=== PATIENT | female | born 1950 | race African-American/Black ===

== ENCOUNTER → 2016-09-18 | Outpatient (CLI) | payer MEDICARE ==
[~2016-09-18] MED LIST: ASPI-110 PO; BD I XX; CYCL5TAB PO; GABA300C5 PO; INSU100V SQ; LATA.005%O EACH EYE; LATA0.002 EACH EYE; METF1000 PO; PNEU13P IM; VASO10TA8 PO; ZOCO40TA PO; ZOSTINJ SQ
[2016-09-18 11:45] LABS: MEAN CELL VOLUME 89.4 FL (80.0-100.0); MEAN CORPUSCULAR HEMOGLOBIN 29.6 PG (27.0-34.0); MEAN CORPUSCULAR HGB CONC 33.1 % (32.0-36.0); PLATELET COUNT 222 TH/MM3 (150-450); RED BLOOD COUNT 4.14 MIL/MM3 (4.00-5.30); RED CELL DISTRIBUTION WIDTH 14.3 % (11.6-17.2); REVIEW FLAG FINAL; WHITE BLOOD COUNT 5.3 TH/MM3 (4.0-11.0)
[2016-09-18 12:01] LABS: BICARBONATE 26.9 MEQ/L (21.0-32.0); POTASSIUM 4.2 MEQ/L (3.5-5.1)
[2016-09-18 16:20] LABS: HEMOGLOBIN A1a 1.5 %; HEMOGLOBIN A1b 2.9 %; HEMOGLOBIN Ao 79.1 %; HEMOGLOBIN LA1C 2.4 %; HEMOGLOBIN P3 4.4 %
== END ==
LOC: CLAB 11:05
PROVIDERS: ATTEND Internal Medicine Nephrology
DX: N28.1 Cyst of kidney, acquired (principal); N18.3 Chronic kidney disease, stage 3 (moderate); E11.22 Type 2 diabetes mellitus with diabetic chronic kidney disease; E11.65 Type 2 diabetes mellitus with hyperglycemia
CPT/HCPCS: 36415; 80069; 83036; 83970; 85027

== ENCOUNTER → 2016-10-09 | Outpatient (CLI) | payer MEDICARE ==
[2016-10-09 09:23] LABS: BACTERIA, URINE RARE /hpf; BLOOD, URINE NEG (NEG); GLUCOSE,URINE 1000 mg/dL (NEG); KETONE, URINE NEG (NEG); MUCUS URINE FEW /lpf (OCC); NITRITE,URINE NEG (NEG); PH, URINE 5.5 (5.0-8.5); SQUAMOUS EPITHELIAL CELL URINE 3 /hpf (0-5); URINE COLOR YELLOW (YELLW/STRAW)
== END ==
LOC: CLAB 09:00
PROVIDERS: ATTEND Physician Assistant
DX: N39.0 Urinary tract infection, site not specified (principal)
CPT/HCPCS: 81001; 87086

== ENCOUNTER → 2016-12-06 | Outpatient (CLI) | payer MEDICARE ==
[~2016-12-06] MED LIST changes: -PNEU13P IM
[2016-12-06 11:22] LABS: HEMATOCRIT 38.9 % (35.0-46.0); MEAN CELL VOLUME 89.7 FL (80.0-100.0); MEAN CORPUSCULAR HEMOGLOBIN 28.4 PG (27.0-34.0); MEAN CORPUSCULAR HGB CONC 31.6 % (32.0-36.0); PLATELET COUNT 212 TH/MM3 (150-450); RED BLOOD COUNT 4.33 MIL/MM3 (4.00-5.30); RED CELL DISTRIBUTION WIDTH 14.3 % (11.6-17.2); REVIEW FLAG FINAL; WHITE BLOOD COUNT 6.1 TH/MM3 (4.0-11.0)
[2016-12-06 11:48] LABS: ALKALINE PHOSPHATASE 80 U/L (45-117); ALT (GPT) 33 U/L (10-53); ANION GAP 8 MEQ/L (5-15); AST (GOT) 21 U/L (15-37); BICARBONATE 27.2 MEQ/L (21.0-32.0); BLOOD UREA NITROGEN 17 MG/DL (7-18); CHLORIDE 107 MEQ/L (98-107); GLOMERULAR FILTRATION RATE 44 ML/MIN (>89); GLUCOSE,FASTING 160 MG/DL (74-99); HDL CHOLESTEROL 55.3 MG/DL (40.0-60.0); LDL CHOLESTEROL 29 MG/DL (0-99); POTASSIUM 4.1 MEQ/L (3.5-5.1); SODIUM (NA) 142 MEQ/L (136-145); TOTAL BILIRUBIN ADULT 0.2 MG/DL (0.2-1.0)
[2016-12-06 11:55] LABS: HEMOGLOBIN A1a 1.6 %; HEMOGLOBIN A1b 2.9 %; HEMOGLOBIN Ao 78.8 %; HEMOGLOBIN LA1C 2.6 %; HEMOGLOBIN P3 4.3 %
== END ==
LOC: CLAB 10:55
PROVIDERS: ATTEND Family Medicine
DX: I10 Essential (primary) hypertension (principal); E11.65 Type 2 diabetes mellitus with hyperglycemia
CPT/HCPCS: 36415; 80053; 80061; 83036; 85027

== ENCOUNTER → 2016-12-23 | Outpatient (CLI) | payer MEDICARE ==
[2016-12-23 14:25] LABS: ANION GAP 5 MEQ/L (5-15); BICARBONATE 28.9 MEQ/L (21.0-32.0); BLOOD UREA NITROGEN 13 MG/DL (7-18); CHLORIDE 105 MEQ/L (98-107); GLOMERULAR FILTRATION RATE 50 ML/MIN (>89); GLUCOSE,FASTING 165 MG/DL (74-99); SODIUM (NA) 139 MEQ/L (136-145)
[2016-12-23 16:39] LABS: HEMOGLOBIN A1a 1.4 %; HEMOGLOBIN Ao 78.5 %; HEMOGLOBIN LA1C 2.5 %; HEMOGLOBIN P3 4.5 %
== END ==
LOC: CLAB 13:37
DX: E11.65 Type 2 diabetes mellitus with hyperglycemia (principal)
CPT/HCPCS: 36415; 80048; 83036

== ENCOUNTER → 2017-03-07 | Outpatient (CLI) | payer MEDICARE ==
[~2017-03-07] MED LIST changes: -BD I XX; +SERT-132 PO; +SERT25TA83 PO; +TRAZ50TA12 PO
[2017-03-07 11:57] LABS: MICRO ALBUMIN RANDOM URINE RAW 8.3 MG/L (0.0-30.0)
== END ==
LOC: CLAB 11:22
PROVIDERS: ATTEND Family Medicine
DX: E11.65 Type 2 diabetes mellitus with hyperglycemia (principal)
CPT/HCPCS: 82043

== ENCOUNTER → 2017-03-18 | Outpatient (CLI) | payer MEDICARE ==
[2017-03-18 10:43] LABS: HEMATOCRIT 35.6 % (35.0-46.0); MEAN CELL VOLUME 90.3 FL (80.0-100.0); MEAN CORPUSCULAR HEMOGLOBIN 29.3 PG (27.0-34.0); MEAN CORPUSCULAR HGB CONC 32.4 % (32.0-36.0); PLATELET COUNT 191 TH/MM3 (150-450); RED BLOOD COUNT 3.94 MIL/MM3 (4.00-5.30); RED CELL DISTRIBUTION WIDTH 15.2 % (11.6-17.2); REVIEW FLAG FINAL; WHITE BLOOD COUNT 5.4 TH/MM3 (4.0-11.0)
[2017-03-18 11:09] LABS: BICARBONATE 27.9 MEQ/L (21.0-32.0); POTASSIUM 4.8 MEQ/L (3.5-5.1)
[2017-03-18 11:13] LABS: BACTERIA, URINE OCC /hpf; BLOOD, URINE NEG (NEG); GLUCOSE,URINE 300 mg/dL (NEG); KETONE, URINE NEG (NEG); MUCUS URINE FEW /lpf (OCC); NITRITE,URINE NEG (NEG); PH, URINE 5.5 (5.0-8.5); SQUAMOUS EPITHELIAL CELL URINE 3 /hpf (0-5); URINE COLOR YELLOW (YELLW/STRAW)
== END ==
LOC: CLAB 10:09
PROVIDERS: ATTEND Internal Medicine Nephrology
DX: N25.81 Secondary hyperparathyroidism of renal origin (principal); N18.3 Chronic kidney disease, stage 3 (moderate)
CPT/HCPCS: 36415; 80069; 81001; 82570; 83970; 84156; 85027

== ENCOUNTER → 2017-04-16 | Outpatient (CLI) | payer MEDICARE ==
[2017-04-16 11:41] LABS: HEMATOCRIT 38.2 % (35.0-46.0); MEAN CORPUSCULAR HEMOGLOBIN 29.5 PG (27.0-34.0); MEAN CORPUSCULAR HGB CONC 32.4 % (32.0-36.0); PLATELET COUNT 212 TH/MM3 (150-450); RED CELL DISTRIBUTION WIDTH 14.4 % (11.6-17.2); REVIEW FLAG FINAL; WHITE BLOOD COUNT 5.2 TH/MM3 (4.0-11.0)
[2017-04-16 11:44] LABS: BACTERIA, URINE FEW /hpf; BLOOD, URINE NEG (NEG); GLUCOSE,URINE 300 mg/dL (NEG); KETONE, URINE NEG (NEG); NITRITE,URINE NEG (NEG); PH, URINE 5.5 (5.0-8.5); SQUAMOUS EPITHELIAL CELL URINE 2 /hpf (0-5); URINE COLOR YELLOW (YELLW/STRAW)
[2017-04-16 11:45] LABS: COMMENT (UR) CULT NOT INDICATED; CULTURE IF INDICATED CULT NOT INDICATED
[2017-04-16 12:01] LABS: BICARBONATE 30.8 MEQ/L (21.0-32.0); POTASSIUM 4.4 MEQ/L (3.5-5.1)
[2017-04-16 17:09] LABS: HEMOGLOBIN A1a 1.4 %; HEMOGLOBIN A1b 2.9 %; HEMOGLOBIN Ao 78.5 %; HEMOGLOBIN LA1C 2.7 %; HEMOGLOBIN P3 4.6 %
== END ==
LOC: CLAB 11:01
DX: E11.22 Type 2 diabetes mellitus with diabetic chronic kidney disease (principal); E11.65 Type 2 diabetes mellitus with hyperglycemia; N18.3 Chronic kidney disease, stage 3 (moderate); N25.81 Secondary hyperparathyroidism of renal origin
CPT/HCPCS: 36415; 80069; 81001; 82570; 83036; 83970; 84156; 85027

== ENCOUNTER → 2017-09-08 | Outpatient (CLI) | payer MEDICARE ==
[~2017-09-08] MED LIST changes: -ASPI-110 PO; +ASPI1TAB57 PO; -SERT25TA83 PO; -TRAZ50TA12 PO
[2017-09-08 14:57] LABS: ALBUMIN 3.9 GM/DL (3.4-5.0); ALT (GPT) 21 U/L (10-53); AST (GOT) 20 U/L (15-37); BICARBONATE 28.8 MEQ/L (21.0-32.0); BLOOD UREA NITROGEN 14 MG/DL (7-18); CALCIUM 8.9 MG/DL (8.5-10.1); CHLORIDE 106 MEQ/L (98-107); CHOLESTEROL 130 MG/DL (120-200); CREATININE 1.29 MG/DL (0.50-1.00); GLOMERULAR FILTRATION RATE 50 ML/MIN (>89); GLUCOSE,FASTING 85 MG/DL (74-99); SODIUM (NA) 140 MEQ/L (136-145)
[2017-09-08 15:01] LABS: ALKALINE PHOSPHATASE 65 U/L (45-117); CHOLESTEROL/ HDL RATIO 2.04 RATIO; HDL CHOLESTEROL 63.5 MG/DL (40.0-60.0); LDL CHOLESTEROL 40 MG/DL (0-99); TOTAL BILIRUBIN ADULT 0.2 MG/DL (0.2-1.0); TOTAL PROTEIN 7.4 GM/DL (6.4-8.2); TRIGLYCERIDES 133 MG/DL (42-150)
[2017-09-08 17:00] LABS: HEMOGLOBIN A1C 7.7 % (4.3-6.0)
== END ==
LOC: CLAB 14:15
PROVIDERS: ATTEND Family Medicine
DX: E11.9 Type 2 diabetes mellitus without complications (principal)
CPT/HCPCS: 36415; 80053; 80061; 83036

== ENCOUNTER → 2017-09-29 | Outpatient (CLI) | payer MEDICARE ==
[2017-09-29 16:35] LABS: HEMATOCRIT 37.3 % (35.0-46.0); HEMOGLOBIN 12.1 GM/DL (11.6-15.3); MEAN CELL VOLUME 91.5 FL (80.0-100.0); MEAN CORPUSCULAR HEMOGLOBIN 29.7 PG (27.0-34.0); MEAN CORPUSCULAR HGB CONC 32.5 % (32.0-36.0); PLATELET COUNT 207 TH/MM3 (150-450); RED BLOOD COUNT 4.08 MIL/MM3 (4.00-5.30); RED CELL DISTRIBUTION WIDTH 15.5 % (11.6-17.2); WHITE BLOOD COUNT 7.1 TH/MM3 (4.0-11.0)
== END ==
LOC: CLAB 15:56
PROVIDERS: ATTEND Internal Medicine Nephrology
DX: E11.22 Type 2 diabetes mellitus with diabetic chronic kidney disease (principal); N18.3 Chronic kidney disease, stage 3 (moderate); N25.81 Secondary hyperparathyroidism of renal origin
CPT/HCPCS: 36415; 83970; 85027

== ENCOUNTER → 2017-10-02 | Outpatient (CLI) | payer MEDICARE ==
[2017-10-02 16:28] LABS: PHOSPHORUS 2.8 MG/DL (2.5-4.9)
[2017-10-02 16:31] LABS: ALBUMIN 3.7 GM/DL (3.4-5.0); BICARBONATE 25.7 MEQ/L (21.0-32.0); CALCIUM 8.6 MG/DL (8.5-10.1); CREATININE 1.31 MG/DL (0.50-1.00)
== END ==
LOC: CLAB 15:53
PROVIDERS: ATTEND Physician Assistant
DX: N18.3 Chronic kidney disease, stage 3 (moderate) (principal)
CPT/HCPCS: 36415; 80069

== ENCOUNTER 2017-10-16 12:50 | Emergency (ER) | payer MEDICARE ==
[~2017-10-16] VITALS: Ht 160 cm; Wt 75.0 kg
[2017-10-16 12:56] VITALS: BP 139/67; PULSE 74; RESP 18; TEMP 97.8; O2SAT 98
[2017-10-16] MEDS ORDERED: METO1TAB42 PO (13:16)
--- NOTE | 2017-10-16 13:51 | PD ---
HPI Chief Complaint: Fall Time Seen by Provider: 13:06 Travel History International Travel<30 days: No Contact w/Intl Traveler<30days: No Traveled to known affect area: No History of Present Illness HPI 67-year-old female presents emergency department for evaluation of right rib, and right elbow pain after a trip and fall that occurred 4 days ago. 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 Says her pain is located on the tip of her elbow and is mildly TTP. She otherwise has full range of motion of her elbow. Her right ribs are TTP and has constant, mild, nonradiating pain. She denies chest pain, shortness of breath, back pain. She denies any head trauma, headache, dizziness, neck pain, back pain. Patient does not take any blood thinners. Patient takes baby aspirin daily. She has a history of hypertension, diabetes mellitus with peripheral neuropathy, hyperlipidemia. PFSH Past Medical History Anemia: Yes Arthritis: Yes Heart Rhythm Problems: No Cardiac Catheterization: No Cardiovascular Problems: Yes High Cholesterol: Yes Congestive Heart Failure: Yes Diabetes: Yes Patient Takes Glucophage: Yes Diminished Hearing: No Endocrine: Yes Genitourinary: No Hypertension: Yes Immune Disorder: No Musculoskeletal: Yes Neurologic: Yes Reproductive: No Myocardial Infarction: No Seizures: Yes Tetanus Vaccination: > 5 Years Influenza Vaccination: No ?: Not Menopausal: Yes Past Surgical History Surgical History: No Previous Surgery AICD: No Arteriovenous Shunt: No Coronary Artery Bypass Graft: No Insulin Pump: No Joint Replacement: No Pacemaker: No Family History Family Hypercholesterolemia: Yes Social History Alcohol Use: No Tobacco Use: No Substance Use: No Allergies-Medications (Allergen,Severity, Reaction): Coded Allergies: No Known Allergies (Verified Adverse Reaction, Unknown, 10/16/17) Reported Meds & Prescriptions Reported Meds & Active Scripts Active Latanoprost Opth Drops (Latanoprost) 0.005% Drops 1 Drop EACH EYE HS Refrigerate until opened. Gabapentin 300 Mg Cap 300 Mg PO TID Metformin (Metformin HCl) 1,000 Mg Tab 1,000 Mg PO BIDPC With meals Zocor (Simvastatin) 40 Mg Tab 40 Mg PO DAILY Reported Metoprolol Succinate ER 24 HR (Metoprolol Succinate) 25 Mg Tab 10 Mg PO DAILY Humalog Mix 75-25 Inj (Insulin Lispro Protam/Lispro Human) 1,000 Unit/10 Ml Susp 50 Units SQ DAILY Aspirin 81 (Aspirin) 81 Mg Tabdr 81 Mg PO DAILY Xalatan Opth Drops (Latanoprost) 0.005% Drops 1 Drop EACH EYE HS Review of Systems Except as stated in HPI: all other systems reviewed are Neg Physical Exam Narrative GENERAL: Well-nourished, well-developed patient. SKIN: Focused skin assessment warm/dry. HEAD: Normocephalic. Atraumatic EYES: No scleral icterus. No injection or drainage. PERRLA, EOMI NECK: Supple, trachea midline. No JVD or lymphadenopathy. No midline tenderness CARDIOVASCULAR: Regular rate and rhythm without murmurs, gallops, or rubs. RESPIRATORY: Breath sounds equal bilaterally. No accessory muscle use. GASTROINTESTINAL: Abdomen soft, non-tender, nondistended. MUSCULOSKELETAL: No cyanosis, or edema. No CVA tenderness No tenderness palpation of the right shoulder, elbow joints, arm, fingers. She is neurovascularly intact. Right elbow-mildly tender to palpation of the distal olecranon process without deformities, abrasions or obvious hematomas. Full range of motion of elbow to include flexion, extension, rotation of hand. Grade 5/5 strength upper and lower extremities. Chest wall-mildly tender to palpation of the right lower ribs, no obvious deformities, abrasions present. BACK: Nontender without obvious deformity. No CVA tenderness. Data Data Last Documented VS Vital Signs Date Time Temp Pulse Resp B/P (MAP) Pulse Ox O2 Delivery O2 Flow Rate FiO2 10/16/17 13:09 98 Room Air 10/16/17 12:56 97.8 74 18 139/67 (91) Orders Orders Chest, Pa & Lat (10/16/17 ) Ed Discharge Order (10/16/17 14:33) MDM Medical Decision Making Medical Screen Exam Complete: Yes Emergency Medical Condition: Yes Differential Diagnosis Right rib contusion, fracture, hematoma Right elbow fracture, contusion, hematoma Narrative Course 67-year-old female presents emergency department for evaluation of right rib, and right elbow pain after a trip and fall that occurred 4 days ago. 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 Says her pain is located on the tip of her elbow and is only TTP. She has full range of motion of her elbow. Her right ribs are TTP and has constant, mild, nonradiating pain. She denies chest pain, shortness of breath, back pain. She denies any head trauma, headache, dizziness, neck pain, back pain. Patient does not take any blood thinners. Patient takes baby aspirin daily. She has a history of hypertension , diabetes mellitus with peripheral neuropathy, hyperlipidemia. Vital signs are stable. Physical exam findings- right elbow without any obvious injury. Mildly tender to palpation of the distal olecranon process however she has full range of motion, neurovascularly intact. Tender palpation of the right axillary ribs without deformities, crepitus. I did offer an x-ray to the elbow however, did not think this is necessary. Patient deferred. Chest x-ray ordered to rule out rib fracture. Negative for fracture or pneumothorax. Patient will be advised to continue taking normal, deep breaths to reduce complications. Advised to follow-up with a primary care physician. Return to the emergency department worsening persistent symptoms. Diagnosis Primary Impression: Contusion of rib on right side Qualified Codes: S20.211A - Contusion of right front wall of thorax, initial encounter Additional Impression: Elbow contusion Qualified Codes: S50.01XA - Contusion of right elbow, initial encounter Referrals: Primary Care Physician Patient Instructions: General Instructions, Rib Contusion (ED) Additional Instructions: Follow-up with primary care physician within 1 week. Continue to take deep breaths to avoid complications from your contusion. If your symptoms persist or worsen return to the emergency department. Him use Tylenol or Motrin per package instructions for your rib pain. Disposition: 01 DISCHARGE HOME Condition: Stable Wanda Uribe Oct 16, 2017 13:51
--- NOTE | 2017-10-16 14:24 | RADRPT ---
EXAM DATE/TIME: 10/16/2017 13:28 [facility] COMPARISON: No previous studies available for comparison. INDICATIONS : Right lateral chest pain post fall approximately 5 days ago. MEDICAL HISTORY : Congestive heart failure. Hypercholesterolemia. Hypertension. Diabetic. Arthritis. SURGICAL HISTORY : None. ENCOUNTER: Initial ACUITY: 4 - 6 days PAIN SCORE: 10/10 LOCATION: Right lateral chest FINDINGS: PA and lateral views of the chest demonstrate the lungs to be symmetrically aerated without evidence of mass, infiltrate or effusion. The cardiomediastinal contours are unremarkable. Osseous structure s are intact. CONCLUSION: 1. No acute cardiopulmonary disease. Harpal Bass MD on October 16, 2017 at 14:22 Board Certified Radiologist. This report was verified electronically.
== END 2017-10-16 15:12 | disposition home or self-care (01) ==
LOC: PHEFT 12:50
DX: S20.211A Contusion of right front wall of thorax, initial encounter (principal); S50.01XA Contusion of right elbow, initial encounter; M25.521 Pain in right elbow; E11.42 Type 2 diabetes mellitus with diabetic polyneuropathy; E78.00 Pure hypercholesterolemia, unspecified; I50.9 Heart failure, unspecified; I11.0 Hypertensive heart disease with heart failure; R56.9 Unspecified convulsions; E78.5 Hyperlipidemia, unspecified; W01.0XXA Fall on same level from slipping, tripping and stumbling without subsequent striking against object, initial encounter; Z79.4 Long term (current) use of insulin; Z79.82 Long term (current) use of aspirin
CPT/HCPCS: 71046; 99283

== ENCOUNTER → 2017-12-04 | Outpatient (CLI) | payer MEDICARE, MEDICAID ==
[~2017-12-04] MED LIST changes: -CYCL5TAB PO; +METO1TAB42 PO; -SERT-132 PO; -VASO10TA8 PO; -ZOSTINJ SQ
== END ==
LOC: CLAB 15:07
PROVIDERS: ATTEND Family Medicine
DX: E11.9 Type 2 diabetes mellitus without complications (principal)
CPT/HCPCS: 36415; 83036